=== PATIENT | female | born 1950 | race Caucasian/White ===

== ENCOUNTER 2016-12-10 17:38 | Emergency (ER) | payer BC ==
[~2016-12-10] VITALS: Ht 167.6 cm; Wt 72.7 kg
[~2016-12-10 17:38] MED LIST: ANTIVERT25 MG PO; NEURONTIN300 MG PO; SYNTHROID25 MCG PO; ZOFRAN4 MG PO
[2016-12-10] MEDS ORDERED: VALIUM5 MG PO (20:04)
[2016-12-10 20:42] VITALS: BP 153/72
== END 2016-12-10 21:06 | disposition home or self-care (01) ==
LOC: EME 17:38
DX: R42 Dizziness and giddiness (principal); H93.19 Tinnitus, unspecified ear; R11.0 Nausea; Z87.891 Personal history of nicotine dependence
CPT/HCPCS: 70450; 99281; 99284; J2405

== ENCOUNTER 2017-01-16 00:28 | Inpatient (IN) | payer BC ==
[~2017-01-16] VITALS: Ht 160 cm; Wt 73.4 kg
[~2017-01-16 00:28] MED LIST changes: +VALIUM5 MG PO
[2017-01-16 01:16] LABS: HEMATOCRIT 41.1 % (36.0-46.0); MCH 29.3 PG (29.0-34.0); MCHC 33.1 G/DL (30.0-36.0); MCV 88.6 FL (83-99); PLATELET COUNT 232 K/uL (156-360); RBC DIS.WIDTH-CV 12.1 % (11.8-14.6); RED BLOOD COUNT 4.64 M/uL (3.80-5.20); WHITE BLOOD COUNT 9.8 K/uL (4.1-10.2)
[2017-01-16 01:23] LABS: CHLORIDE 101 mEq/L (99-109); POTASSIUM 3.9 mEq/L (3.7-5.4); SODIUM 138 mEq/L (136-147)
[2017-01-16 01:26] LABS: GLUCOSE 146 mg/dL (70-99)
[2017-01-16 01:27] LABS: ANION GAP 9 MEQ/L (2-14); TOTAL BILIRUBIN 0.4 mg/dL (0.0-1.0)
[2017-01-16 01:28] LABS: INTER. NORMALIZED RATIO 1.1; PROTHROMBIN TIME 10.7 (9.2-11.2); PTT 25.1 (25-32)
[2017-01-16 01:29] LABS: ALKALINE PHOSPHATASE 71 IU/L (3-129); GFR ESTIMATE (CALCULATED) > 59 mL/min/
[2017-01-16 01:30] LABS: UREA NITROGEN (BUN) 16 mg/dL (9-23)
[2017-01-16 01:33] LABS: LIPASE 382 U/L (1.0-51.0)
[2017-01-16 01:40] LABS: TROP-I INTERPRETATION POSITIVE; TROPONIN-I 1.44 ng/mL (0.0-0.30)
[2017-01-16 01:56] LABS: D-DIMER ELISA 1.85 mg/L FEU (< 0.57)
[2017-01-16 06:58] LABS: MCH 28.9 PG (29.0-34.0); MCHC 32.3 G/DL (30.0-36.0); MCV 89.5 FL (83-99); PLATELET COUNT 231 K/uL (156-360); RBC DIS.WIDTH-CV 12.1 % (11.8-14.6); RBC DIS.WIDTH-SD 39.8 % (39-53); RED BLOOD COUNT 4.47 M/uL (3.80-5.20); WHITE BLOOD COUNT 7.7 K/uL (4.1-10.2)
[2017-01-16 07:35] LABS: TROP-I INTERPRETATION POSITIVE; TROPONIN-I 3.53 ng/mL (0.0-0.30)
[2017-01-16 07:41] LABS: ANION GAP 5 MEQ/L (2-14); CHLORIDE 105 MEQ/L (99-109); POTASSIUM 4.1 MEQ/L (3.7-5.4); SAMPLE HEMOLYSIS CHECK 0; SAMPLE ICTERIC CHECK 0; SAMPLE LIPEMIA CHECK 0; SODIUM 140 MEQ/L (136-147)
[2017-01-16 07:47] LABS: GFR ESTIMATE (CALCULATED) > 59 mL/min/; GLUCOSE 121 mg/dL (70-99); HDL CHOLESTEROL 68 MG/DL (Desirable>=50); LDL CHOLESTEROL 142 mg/dL (Desirable<100); NON-HDL CHOLESTEROL 152 mg/dL (Desirable<160); TOTAL CHOLESTEROL 220 mg/dL (Desirable<200); TRIGLYCERIDES 50 MG/DL (Normal: <150); UREA NITROGEN (BUN) 13 mg/dL (9-23)
[2017-01-16] MEDS ORDERED: LEVO-T100 MCG PO (08:34)
[2017-01-16] MEDS ORDERED: LISINOPRIL2.5 MG PO (08:35)
[2017-01-16] MEDS ORDERED: DICLOFENAC SOD100 GM TP (08:35)
[2017-01-16] MEDS ORDERED: AIRBORNE GUMMI1 EACH PO (08:36)
[2017-01-16] MEDS ORDERED: VISINE A.C300 DROP/1 BOTH EYES (08:36)
[2017-01-16] MEDS ORDERED: TRAMADOL HCL50 MG PO (08:36)
[2017-01-16] MEDS ORDERED: ONE DAILY FOR1 EAC1 PO (08:37)
[2017-01-16 15:45] VITALS: BP 122/72
[2017-01-16 16:30] VITALS: BP 122/72
[2017-01-16 16:50] LABS: TROP-I INTERPRETATION POSITIVE; TROPONIN-I 2.25 ng/mL (0.0-0.30)
[2017-01-16 20:23] VITALS: BP 114/53
[2017-01-16 23:37] VITALS: BP 119/56
[2017-01-17 05:07] VITALS: BP 122/64
[2017-01-17 08:04] VITALS: BP 129/72
[2017-01-17 08:17] LABS: HEMATOCRIT 40.9 % (36.0-46.0); MCH 29.4 PG (29.0-34.0); MCHC 32.5 G/DL (30.0-36.0); MCV 90.3 FL (83-99); MEAN PLAT.VOLUME 10.4 uM^3 (9.5-12.4); PLATELET COUNT 224 K/uL (156-360); RBC DIS.WIDTH-CV 12.3 % (11.8-14.6); RBC DIS.WIDTH-SD 40.6 % (39-53); RED BLOOD COUNT 4.53 M/uL (3.80-5.20); WHITE BLOOD COUNT 5.3 K/uL (4.1-10.2)
[2017-01-17 08:23] LABS: ANION GAP 11 MEQ/L (2-14); CHLORIDE 106 MEQ/L (99-109); GFR ESTIMATE (CALCULATED) > 59 mL/min/; GLUCOSE 106 mg/dL (70-99); LIPASE 98 U/L (1.0-51.0); POTASSIUM 4.2 MEQ/L (3.7-5.4); SAMPLE HEMOLYSIS CHECK 0; SAMPLE ICTERIC CHECK 0; SAMPLE LIPEMIA CHECK 0; SODIUM 143 MEQ/L (136-147); UREA NITROGEN (BUN) 11 mg/dL (9-23)
[2017-01-17 12:09] VITALS: BP 130/74
[2017-01-17 16:52] VITALS: BP 110/55
[2017-01-17 20:23] VITALS: BP 104/54
[2017-01-18 00:50] VITALS: BP 98/47
[2017-01-18 04:49] VITALS: BP 109/54
[2017-01-18 07:05] LABS: HEMATOCRIT 40.1 % (36.0-46.0); MCH 28.8 PG (29.0-34.0); MCHC 31.9 G/DL (30.0-36.0); MCV 90.1 FL (83-99); PLATELET COUNT 230 K/uL (156-360); RBC DIS.WIDTH-CV 12.2 % (11.8-14.6); RBC DIS.WIDTH-SD 40.4 % (39-53); RED BLOOD COUNT 4.45 M/uL (3.80-5.20); WHITE BLOOD COUNT 5.3 K/uL (4.1-10.2)
[2017-01-18 07:43] VITALS: BP 116/56
[2017-01-18 11:07] VITALS: BP 98/49
[2017-01-18] MEDS ORDERED: CARVEDILOL6.25 MG PO (15:38)
[2017-01-18] MEDS ORDERED: ASPIR-LOW81 MG PO (15:38)
[2017-01-18] MEDS ORDERED: NITROSTAT0.4 MG SL ×2 (15:38→15:40)
[2017-01-18] MEDS ORDERED: ATORVASTATIN CA20 MG PO (15:38)
[2017-01-18 16:01] VITALS: BP 127/56
== END 2017-01-18 18:00 | disposition home or self-care (01) | DRG 281 ==
LOC: EME 00:28 → 4EAST 03:43 → EDOF 03:43 → 4EAST 15:40
PROVIDERS: Emergency Medicine; Family Medicine; Physician Assistant
DX: I21.4 Non-ST elevation (NSTEMI) myocardial infarction (principal); I51.81 Takotsubo syndrome; I51.4 Myocarditis, unspecified; I10 Essential (primary) hypertension; E78.5 Hyperlipidemia, unspecified; E11.42 Type 2 diabetes mellitus with diabetic polyneuropathy; E03.9 Hypothyroidism, unspecified; H81.09 Meniere's disease, unspecified ear; Z88.1 Allergy status to other antibiotic agents; Z88.0 Allergy status to penicillin; Z87.891 Personal history of nicotine dependence; Z82.49 Family history of ischemic heart disease and other diseases of the circulatory system
CPT/HCPCS: 70450; 71020; 71275; 74177; 80048; 80048 91; 80053; 80061; 83690; 84484; 85027; 85347; 85379; 85610; 85730; 93005; 93306; 99281; 99285; C1769; C1887; J1644; J2250; J2270; J2405; J3010; J7030

== ENCOUNTER 2017-03-12 18:04 | Observation (INO) | payer BC ==
[~2017-03-12] VITALS: Ht 162.6 cm; Wt 62.5 kg
[~2017-03-12 18:04] MED LIST changes: +AIRBORNE GUMMI1 EACH PO; +ASPIR-LOW81 MG PO; +ATORVASTATIN CA20 MG PO; +CARVEDILOL6.25 MG PO; +DICLOFENAC SOD100 GM TP; +LEVO-T100 MCG PO; +LISINOPRIL2.5 MG PO; +NITROSTAT0.4 MG SL; +ONE DAILY FOR1 EAC1 PO; +TRAMADOL HCL50 MG PO; +VISINE A.C300 DROP/1 BOTH EYES
[2017-03-12 19:05] LABS: EOSINOPHIL (%) 2.9 % (0-5); EOSINOPHIL COUNT 0.2 K/uL (0-0.3); IMMATURE GRANULOCYTE (%) 0.3 % (0.0-0.7); INSTRUMENT ABS NEUTROPHIL CT 2.9 K/uL; LYMPHOCYTE COUNT 2.1 K/uL (1.0-2.8); MCH 29.4 PG (29.0-34.0); MCV 86.4 FL (83-99); MEAN PLAT.VOLUME 9.9 uM^3 (9.5-12.4); MONOCYTE (%) 11.4 % (3-12); MONOCYTE COUNT 0.7 K/uL (0-0.8); NEUTROPHIL COUNT 2.9 K/uL (1.8-6.4); PLATELET COUNT 238 K/uL (156-360); RBC DIS.WIDTH-CV 12.2 % (11.8-14.6); RBC DIS.WIDTH-SD 38.6 % (39-53); RED BLOOD COUNT 4.63 M/uL (3.80-5.20); WHITE BLOOD COUNT 5.9 K/uL (4.1-10.2)
[2017-03-12 19:14] LABS: CHLORIDE 110 mEq/L (99-109); POTASSIUM 3.8 mEq/L (3.7-5.4); SODIUM 144 mEq/L (136-147)
[2017-03-12 19:16] LABS: GLUCOSE 120 mg/dL (70-99)
[2017-03-12 19:18] LABS: ANION GAP 12 MEQ/L (2-14)
[2017-03-12 19:20] LABS: GFR ESTIMATE (CALCULATED) > 59 mL/min/
[2017-03-12 19:21] LABS: UREA NITROGEN (BUN) 11 mg/dL (9-23)
[2017-03-12 19:26] LABS: TROP-I INTERPRETATION NEGATIVE; TROPONIN-I 0.02 ng/mL (0.0-0.30)
[2017-03-12] MEDS ORDERED: ATORVASTATIN CA20 MG PO (20:00)
[2017-03-12] MEDS ORDERED: LO-DOSE ASPIRIN81 M1 PO (20:01)
[2017-03-12] MEDS ORDERED: CARVEDILOL3.125 MG PO (20:01)
[2017-03-12] MEDS ORDERED: MIDAMOR5 MG PO (20:01)
[2017-03-12] MEDS ORDERED: SYSTANE BALANCE10 ML BOTH EYES (20:02)
[2017-03-12] MEDS ORDERED: ONE DAILY GUM200 MCG PO (20:03)
[2017-03-12] MEDS ORDERED: PROMETHAZINE HC25 M1 PO (20:04)
[2017-03-12] MEDS ORDERED: FLEXERIL10 MG PO (20:04)
[2017-03-12 23:02] VITALS: BP 127/72
[2017-03-13 01:38] LABS: TROP-I INTERPRETATION NEGATIVE; TROPONIN-I < 0.01 ng/mL (0.0-0.30)
[2017-03-13 04:08] VITALS: BP 98/50
[2017-03-13 07:10] VITALS: BP 103/50
[2017-03-13 09:08] LABS: ALKALINE PHOSPHATASE 56 IU/L (3-129); ANION GAP 8 MEQ/L (2-14); CHLORIDE 107 MEQ/L (99-109); GFR ESTIMATE (CALCULATED) > 59 mL/min/; GLUCOSE 102 mg/dL (70-99); HDL CHOLESTEROL 54 MG/DL (Desirable>=50); LDL CHOLESTEROL 71 mg/dL (Desirable<100); MAGNESIUM 2.3 mg/dl (1.3-2.7); NON-HDL CHOLESTEROL 85 mg/dL (Desirable<160); POTASSIUM 4.1 MEQ/L (3.7-5.4); SAMPLE HEMOLYSIS CHECK 0; SAMPLE ICTERIC CHECK 0; SAMPLE LIPEMIA CHECK 0; SODIUM 142 MEQ/L (136-147); TOTAL BILIRUBIN 0.5 MG/DL (0.0-1.0); TOTAL CHOLESTEROL 139 mg/dL (Desirable<200); TRIGLYCERIDES 70 MG/DL (Normal: <150); UREA NITROGEN (BUN) 11 mg/dL (9-23)
[2017-03-13 10:42] LABS: TROP-I INTERPRETATION NEGATIVE; TROPONIN-I 0.01 ng/mL (0.0-0.30)
[2017-03-13 11:32] LABS: ADD MIUA? YES; BILIRUBIN NEGATIVE; BLOOD SMALL; COLOR YELLOW ((YELLOW)); GLUCOSE (STRIP) NEGATIVE; KETONES 5; LEUKOCYTES MODERATE; NITRITE NEGATIVE; PROTEIN (STRIP) NEGATIVE; SPECIFIC GRAVITY 1.021 (1.000-1.030); UROBILINOGEN 0.2 MG/DL (0.2-1.0)
[2017-03-13 11:48] LABS: BACTERIA NONE SEEN /HPF; EPITHELIAL CELLS RARE /HPF; HYALINE CASTS 15-20 /LPF; MUCUS 1+ /LPF; UCUL ADDED? NO; WHITE BLOOD CELLS 0-5 /HPF (0-5)
[2017-03-13 12:09] VITALS: BP 100/47
[2017-03-13] MEDS ORDERED: ELIQUIS5 MG PO (13:11)
[2017-03-13] MEDS ORDERED: CORDARONE200 MG PO (13:12)
== END 2017-03-13 14:09 | disposition home or self-care (01) ==
LOC: EME 18:04 → 4EAST 21:08 → EDOF 21:08 → 4EAST 21:08
PROVIDERS: Emergency Medicine; Hospitalist; Physician Assistant Medical
DX: I48.0 Paroxysmal atrial fibrillation (principal); R42 Dizziness and giddiness; E11.9 Type 2 diabetes mellitus without complications; I10 Essential (primary) hypertension; K21.9 Gastro-esophageal reflux disease without esophagitis; E78.5 Hyperlipidemia, unspecified; I25.2 Old myocardial infarction; Z87.891 Personal history of nicotine dependence; E89.0 Postprocedural hypothyroidism; M19.90 Unspecified osteoarthritis, unspecified site; K58.9 Irritable bowel syndrome, unspecified; G25.81 Restless legs syndrome
CPT/HCPCS: 71010; 80048; 80053; 80061; 81003; 83735; 83880; 84439; 84443; 84484; 85025; 93005; 99281; 99285; G0378; J1650; J3475; J7050

== ENCOUNTER 2017-05-21 14:59 | Emergency (ER) | payer BC ==
[~2017-05-21] VITALS: Ht 160 cm; Wt 64.6 kg
[~2017-05-21 14:59] MED LIST changes: +CARVEDILOL3.125 MG PO; +CORDARONE200 MG PO; +ELIQUIS5 MG PO; +FLEXERIL10 MG PO; +LO-DOSE ASPIRIN81 M1 PO; +MIDAMOR5 MG PO; +ONE DAILY GUM200 MCG PO; +PROMETHAZINE HC25 M1 PO; +SYSTANE BALANCE10 ML BOTH EYES
[2017-05-21 15:54] LABS: MCH 29.6 PG (29.0-34.0); MCHC 32.6 G/DL (30.0-36.0); MCV 90.9 FL (83-99); MEAN PLAT.VOLUME 10.2 uM^3 (9.5-12.4); PLATELET COUNT 226 K/uL (156-360); RBC DIS.WIDTH-SD 43.1 % (39-53); RED BLOOD COUNT 4.29 M/uL (3.80-5.20); WHITE BLOOD COUNT 5.7 K/uL (4.1-10.2)
[2017-05-21 16:06] LABS: CHLORIDE 107 mEq/L (99-109); POTASSIUM 4.3 mEq/L (3.7-5.4); SODIUM 142 mEq/L (136-147)
[2017-05-21 16:08] LABS: GLUCOSE 123 mg/dL (70-99)
[2017-05-21 16:09] LABS: ANION GAP 10 MEQ/L (2-14)
[2017-05-21 16:12] LABS: GFR ESTIMATE (CALCULATED) > 59 mL/min/
[2017-05-21 16:13] LABS: UREA NITROGEN (BUN) 10 mg/dL (9-23)
[2017-05-21 16:20] LABS: TROP-I INTERPRETATION NEGATIVE; TROPONIN-I 0.01 ng/mL (0.0-0.30)
[2017-05-21 17:44] LABS: CREATINE KINASE 203 IU/L (1-294); TOTAL CK 203 IU/L (1-294)
[2017-05-21 17:47] LABS: TROP-I INTERPRETATION NEGATIVE; TROPONIN-I < 0.01 ng/mL (0.0-0.30)
[2017-05-21 17:50] LABS: CK-MB 3.2 ng/mL (0.0-4.9)
[2017-05-21 18:20] VITALS: BP 114/60
== END 2017-05-21 18:21 | disposition home or self-care (01) ==
LOC: EME 14:59
PROVIDERS: Emergency Medicine
DX: R07.9 Chest pain, unspecified (principal); R68.84 Jaw pain; R00.2 Palpitations; I10 Essential (primary) hypertension; I25.2 Old myocardial infarction; Z79.01 Long term (current) use of anticoagulants; Z87.891 Personal history of nicotine dependence
CPT/HCPCS: 71020; 80048; 82550 91; 82553; 84484; 85027; 93005; 99281; 99284

== ENCOUNTER 2017-10-03 20:10 | Observation (INO) | payer OTHER, BC ==
[~2017-10-03] VITALS: Ht 162.6 cm; Wt 64.3 kg
[2017-10-03 20:59] LABS: HEMATOCRIT 36.3 % (36.0-46.0); MCH 30.3 PG (29.0-34.0); MCHC 33.6 G/DL (30.0-36.0); MCV 90.3 FL (83-99); MEAN PLAT.VOLUME 10.3 uM^3 (9.5-12.4); PLATELET COUNT 203 K/uL (156-360); RBC DIS.WIDTH-CV 12.1 % (11.8-14.6); RBC DIS.WIDTH-SD 40.3 % (39-53); RED BLOOD COUNT 4.02 M/uL (3.80-5.20); WHITE BLOOD COUNT 5.8 K/uL (4.1-10.2)
[2017-10-03 21:03] LABS: PROTHROMBIN TIME 11.7 SEC (10.2-12.9)
[2017-10-03 21:05] LABS: PTT 29.9 SEC (25-37)
[2017-10-03 21:25] LABS: CHLORIDE 107 mEq/L (99-109); POTASSIUM 3.7 mEq/L (3.7-5.4); SODIUM 143 mEq/L (136-147)
[2017-10-03 21:26] LABS: GLUCOSE 120 mg/dL (70-99)
[2017-10-03 21:28] LABS: ANION GAP 9 MEQ/L (2-14)
[2017-10-03 21:30] LABS: GFR ESTIMATE (CALCULATED) > 59 mL/min/
[2017-10-03 21:31] LABS: TROP-I INTERPRETATION NEGATIVE; TROPONIN-I 0.05 ng/mL (0.0-0.30); UREA NITROGEN (BUN) 13 mg/dL (9-23)
[2017-10-03] MEDS ORDERED: COREG6.25 M1 PO (22:28)
[2017-10-03] MEDS ORDERED: LEVOTHYROXINE88 MCG PO (22:31)
[2017-10-03] MEDS ORDERED: MULTI VITAMIN1 EACH PO (22:33)
[2017-10-03] MEDS ORDERED: CAL MAG ZINC +1 EAC1 PO (22:34)
[2017-10-03] MEDS ORDERED: COZAAR25 MG PO (22:35)
[2017-10-03] MEDS ORDERED: PRAVASTATIN SOD20 MG PO (22:35)
[2017-10-03] MEDS ORDERED: DIURETIC SOFTGE50 MG PO (22:37)
[2017-10-04 00:20] VITALS: BP 139/65
[2017-10-04 03:19] LABS: HEMATOCRIT 36.7 % (36.0-46.0); MCH 30.1 PG (29.0-34.0); MCV 91.3 FL (83-99); MEAN PLAT.VOLUME 9.8 uM^3 (9.5-12.4); PLATELET COUNT 190 K/uL (156-360); RBC DIS.WIDTH-CV 12.1 % (11.8-14.6); RBC DIS.WIDTH-SD 40.6 % (39-53); RED BLOOD COUNT 4.02 M/uL (3.80-5.20); WHITE BLOOD COUNT 5.6 K/uL (4.1-10.2)
[2017-10-04 03:27] LABS: CHLORIDE 106 mEq/L (99-109); POTASSIUM 3.8 mEq/L (3.7-5.4); SODIUM 143 mEq/L (136-147)
[2017-10-04 03:31] LABS: TOTAL BILIRUBIN 0.3 mg/dL (0.0-1.0)
[2017-10-04 03:38] LABS: TROP-I INTERPRETATION NEGATIVE; TROPONIN-I 0.14 ng/mL (0.0-0.30)
[2017-10-04 03:56] LABS: GLUCOSE 101 mg/dL (70-99)
[2017-10-04 03:57] LABS: ANION GAP 7 MEQ/L (2-14)
[2017-10-04 03:59] LABS: ALKALINE PHOSPHATASE 55 IU/L (3-129); GFR ESTIMATE (CALCULATED) > 59 mL/min/
[2017-10-04 04:00] LABS: UREA NITROGEN (BUN) 13 mg/dL (9-23)
[2017-10-04 07:30] VITALS: BP 133/63
[2017-10-04 10:50] LABS: TROP-I INTERPRETATION NEGATIVE; TROPONIN-I 0.06 ng/mL (0.0-0.30)
[2017-10-04] MEDS ORDERED: ANTIVERT25 MG PO (13:19)
== END 2017-10-04 15:48 | disposition home or self-care (01) ==
LOC: EME 20:10 → EDOF 22:18 → 5WEST 22:18 → ENRESERV 22:25 → 5WEST 23:56
PROVIDERS: Emergency Medicine; Internal Medicine
DX: R07.9 Chest pain, unspecified (principal); R00.2 Palpitations; I48.0 Paroxysmal atrial fibrillation; Z79.01 Long term (current) use of anticoagulants; I10 Essential (primary) hypertension; E78.5 Hyperlipidemia, unspecified; R42 Dizziness and giddiness; I51.7 Cardiomegaly; I25.2 Old myocardial infarction; E11.9 Type 2 diabetes mellitus without complications; E89.0 Postprocedural hypothyroidism; Z98.890 Other specified postprocedural states; Z92.3 Personal history of irradiation; Z86.19 Personal history of other infectious and parasitic diseases; G25.81 Restless legs syndrome; K21.9 Gastro-esophageal reflux disease without esophagitis; Z87.891 Personal history of nicotine dependence; Z82.49 Family history of ischemic heart disease and other diseases of the circulatory system; Z83.3 Family history of diabetes mellitus; Z88.1 Allergy status to other antibiotic agents; Z88.0 Allergy status to penicillin
CPT/HCPCS: 71020; 80048; 80053; 84484; 85027; 85610; 85730; 93005; 99281; 99285; G0378